=== PATIENT | male | born 1985 | race Caucasian/White ===

== ENCOUNTER 2022-07-31 08:38 | Emergency (ER) | payer OTHER, SELFPAY ==
[2022-07-31 08:50] VITALS: BP 107/72; PULSE 99; RESP 18; TEMP 37.2; O2SAT 98
--- NOTE | 2022-07-31 10:00 | ED.URI ---
HPI - URI/Sore Throat General Chief Complaint: Upper Respiratory Infection Stated Complaint: Sore Thorat/Bodyache/Headache Time Seen by Provider: 07/31/22 09:50 Source: patient, RN notes reviewed and old records reviewed Mode of arrival: ambulatory Limitations: no limitations History of Present Illness HPI Narrative: 36-year-old male who presents to [facility] with complaints of sore throat which started last night with some low-grade fevers noted. Patient denies any ear pain any nausea does admit to mild headache discomfort. Patient has taken cold and flu medication and also DayQuil for his symptoms. Patient denies any acute cough any shortness of breath or acute body aches. Patient has been COVID vaccinated but has not had flu shot. Patient reports he has had positive exposure to strep from his child. MD elicited complaint: cough and sore throat Pertinent past history: immunosuppression (On methotrexate) Onset (ago): day(s) (1) Treatments prior to arrival: other (Cold and flu OTC med and DayQuil) Related Data Home Medications Medication Instructions Recorded Confirmed meloxicam 15 mg tablet 15 mg PO DAILY 07/31/22 07/31/22 methotrexate sodium (PF) 25 mg/mL 2 mg WEEKLY 07/31/22 07/31/22 injection solution Allergies Allergy/AdvReac Type Severity Reaction Status Date / Time No Known Allergies Allergy Unverified 02/26/14 11:48 Review of Systems Review of Systems: CONSTITUTIONAL: Denies malaise, chills, sweats, or fever. EYES: Denies visual changes, redness, or discharge. ENT: Reports rhinorrhea, congestion, sinus pain, otalgia and sore throat. CARDIOVASCULAR: Denies chest pain, palpitations, or edema. RESPIRATORY: Reports cough.? Denies dyspnea. GASTROINTESTINAL: Denies abdominal pain, nausea, vomiting, diarrhea SKIN: Denies rash or itching. MUSCULOSKELETAL: Denies myalgia. NEUROLOGIC: Denies headache. All systems reviewed & are unremarkable except as noted in HPI and below PMFSH Past Medical History Medical History (Updated 07/31/22 @ 10:14 by Mellissa Pa NP) Rheumatoid arthritis Surgical History Surgical History (Updated 07/31/22 @ 10:14 by Mellissa Pa NP) H/O shoulder surgery right Social History Social History (Updated 07/31/22 @ 10:15 by Mellissa Pa NP) Smoking packs per day: 0.5 Smoking cigarettes per day: 10.0 Years smoked: 10 Smoking pack-years: 5.00 Smoking status: Current every day smoker Alcohol intake: current Alcohol use details: social Substance use type: does not use Living arrangements: with family Gender identity (if verbalized by the patient): Male Comments At time of signature, agree with nursing past medical, surgical, social and family history. There is no relevant family history pertinent to the presenting complaint Exam Narrative: GENERAL: Well-appearing, well-nourished, and in no acute distress. HEAD: Normocephalic EYES: PERRLA, conjunctivae clear ENT: Nares clear, turbinates edematous and erythematous, clear discharge. Mucous membranes moist. TM pearly hooper with dull light reflex bilaterally; no tragal tenderness. Oropharynx erythematous without lesions. Tonsils red and enlarged and without exudate, no drooling, no hoarseness, no trismus, uvula midline. NECK: Supple. lymphadenopathy CHEST: Clear to auscultation, breath sounds equal. No wheezing, rhonchi, rales, or stridor. No respiratory distress, speaks in full sentences.SAO2 98% on room air HEART: Regular rate and rhythm. No murmur heard. SKIN: Warm, dry, no rash. NEURO: Alert and oriented x3. PSYCH: Normal mood and affect Course Course Emergency Course: Patient is aware of diagnosis, understands and agrees to treatment plan.? Anticipatory guidance given.? Patient agrees to follow-up as directed and is aware of reasons to seek care at the emergency department. Portions of this record may have been created with voice recognition soft
== END 2022-07-31 10:23 | disposition home or self-care (01) ==
PROVIDERS: Emergency Provider Registered Nurse
DX: J02.0 Streptococcal pharyngitis (principal); F17.219 Nicotine dependence, cigarettes, with unspecified nicotine-induced disorders; M06.9 Rheumatoid arthritis, unspecified
CPT/HCPCS: 87880; 99203; G0463